=== PATIENT | male | born 1990 | race Caucasian/White ===

== ENCOUNTER 2017-11-12 16:46 | Emergency (ER) | payer BC, OTHER ==
[2017-11-12 17:24] VITALS: BP 136/76
[2017-11-12] MEDS ORDERED: Lidocaine 1% MPF* 2 ML VIAL INJ ONE (18:04)
--- NOTE | 2017-11-12 18:08 | RAD ---
Indication: Traumatic injury to the left knee. 4 views of left knee demonstrates no definite fracture or dislocation. No other bone or joint abnormality is identified. IMPRESSION: No fracture of the left knee is noted.
--- NOTE | 2017-11-12 18:37 | UC ---
Laceration HPI - HPI Summary HPI Summary: 3 cm laceration lateral proximal aspect of left knee-happen when he got hit in the leg with an axe about 2 hours ago - History Of Current Complaint Chief Complaint: UCLaceration Stated Complaint: THIGH LAC Time Seen by Provider: 11/12/17 17:26 Hx Obtained From: Patient Laceration Location: Knee - left Mechanism Of Injury: Sharp Trauma Onset/Duration: Sudden Onset Severity: Mild - Allergies/Home Medications Allergies/Adverse Reactions: Allergies Allergy/AdvReac Type Severity Reaction Status Date / Time Sulfa Antibiotics Allergy Intermediate Hives Verified 11/12/17 17:24 PMH/Surg Hx/FS Hx/Imm Hx Previously Healthy: Yes - Surgical History Surgical History: Yes Surgery Procedure, Year, and Place: wisdom teeth extraction - Family History Known Family History: Positive: None - Social History Occupation: Employed Full-time Lives: With Family Alcohol Use: Rare Substance Use Type: None Smoking Status (MU): Never Smoked Tobacco - Immunization History Most Recent Influenza Vaccination: 2016 Review of Systems Constitutional: Negative Skin: Other - 3 cm laceration near left knee Eyes: Negative ENT: Negative Respiratory: Negative Cardiovascular: Negative Gastrointestinal: Negative Genitourinary: Negative Motor: Negative Neurovascular: Negative Musculoskeletal: Negative Neurological: Negative Psychological: Negative Is Patient Immunocompromised?: No All Other Systems Reviewed And Are Negative: Yes Physical Exam Triage Information Reviewed: Yes Appearance: Well-Appearing, No Pain Distress, Well-Nourished Vital Signs: Initial Vital Signs Temp 99.1 F 11/12/17 17:19 Pulse 86 11/12/17 17:19 Resp 14 11/12/17 17:19 BP 136/76 11/12/17 17:19 Pulse Ox 98 11/12/17 17:19 Vital Signs Reviewed: Yes Eye Exam: Normal Eyes: Positive: Conjunctiva Clear ENT Exam: Normal ENT: Positive: Normal ENT inspection, Hearing grossly normal. Negative: Nasal congestion, Nasal drainage, TMs normal, Trismus, Muffled voice, Hoarse voice, Dental tenderness Dental Exam: Normal Neck exam: Normal Neck: Positive: Supple, Nontender Respiratory Exam: Normal Respiratory: Positive: Chest non-tender, No respiratory distress, No accessory muscle use Cardiovascular Exam: Normal Cardiovascular: Positive: RRR, Pulses Normal, Brisk Capillary Refill Musculoskeletal Exam: Normal Musculoskeletal: Positive: Strength Intact, ROM Intact, No Edema Neurological Exam: Normal Neurological: Positive: Alert, Muscle Tone Normal Psychological Exam: Normal Psychological: Positive: Normal Response To Family Skin Exam: Normal Laceration Repair - Laceration Repair 1 Description: Linear Laceration Size After Repair: Length (cm) - 3, Width (mm) - 3, Depth (mm) - 3 Modified For Repair: No Type Injection: Local Anesthesia Used: 1.0% Lido - 4cc Cleansing Completed Via Routine Prep: Yes Irrigation With Pressure Irrigation Device: Yes Suture Of: Skin Suture Type: Nylon - 5 number 5.0 sutures Diagnostics - Radiology No standard instances Xray Interpretation: Positive (See Comments) Radiology Interpretation Completed By: Radiologist Re-Evaluation - Re-Evaluation First Eval Change: Improved - well approximated, no bleeding patient tolerated well Laceration Course/Dx - Course/Dx Course Of Treatment: tetanus up to yayo, laceration repair bacitracin, soap and water wash boy wrap 5 days of keflex sutures out in 10-14 days - Differential Dx - Laceration/Wound Provider Diagnoses: 3.0cm Laceration repair left leg Discharge - Discharge Plan Condition: Stable Disposition: HOME Prescriptions: Cephalexin CAP* [Keflex CAP*] 500 mg PO QID #20 cap Patient Education Materials: Care For Your Stitches (ED), Laceration (ED) Referrals: Cooper Calderón MD [Primary Care Provider] - If Needed Additional Instructions: Sutures out in 10-14 days
== END 2017-11-12 18:50 | disposition home or self-care (01) ==
LOC: UCEAST 16:46
DX: S81.012A Laceration without foreign body, left knee, initial encounter (principal); Z88.2 Allergy status to sulfonamides; W45.8XXA Other foreign body or object entering through skin, initial encounter; Y92.9 Unspecified place or not applicable
CPT/HCPCS: 12002; 99212; G0463

== ENCOUNTER 2017-11-28 20:42 | Emergency (ER) | payer BC ==
[2017-11-28 20:52] VITALS: BP 130/88
[2017-11-28] MEDS ORDERED: DOXYcycline CAP(*) 100 MG PO ONE (21:20)
[2017-11-28] MEDS ORDERED: Benzoin Compound STICK TOPICAL ONE (21:20)
--- NOTE | 2017-11-28 21:54 | UC ---
Skin Complaint HPI - HPI Summary HPI Summary: 27 yo gentleman presents here for recheck and suture removal L knee. S/p suture placement 11/12/17, s/p accidently chopping knee while chopping wood with a hatchet. Sutures placed here in [facility]. Tet immun utd. Has not gotten the wound wet. + local swelling, mild redness, no sign drainage. 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 Has been working. No recent or new trauma. - History of Current Complaint Chief Complaint: UCSkin Time Seen by Provider: 11/28/17 20:54 Stated Complaint: STITCHES REMOVED Hx Obtained From: Patient Pain Intensity: 0 - Allergy/Home Medications Allergies/Adverse Reactions: Allergies Allergy/AdvReac Type Severity Reaction Status Date / Time Sulfa Antibiotics Allergy Intermediate Hives Verified 11/28/17 20:52 Review of Systems Constitutional: Negative Skin: Other - see hpi Eyes: Negative ENT: Negative Respiratory: Negative Cardiovascular: Negative Gastrointestinal: Negative Genitourinary: Negative Motor: Other - see hpi Neurovascular: Negative Musculoskeletal: Negative Neurological: Negative Psychological: Negative Is Patient Immunocompromised?: No All Other Systems Reviewed And Are Negative: Yes PMH/Surg Hx/FS Hx/Imm Hx Previously Healthy: Yes - Surgical History Surgical History: Yes Surgery Procedure, Year, and Place: wisdom teeth extraction - Family History Known Family History: Positive: None - Social History Alcohol Use: Rare Substance Use Type: None Smoking Status (MU): Never Smoked Tobacco - Immunization History Most Recent Influenza Vaccination: 2016 Physical Exam Triage Information Reviewed: Yes Appearance: Well-Nourished Vital Signs: Initial Vital Signs Temp 98.0 F 11/28/17 20:49 Pulse 60 11/28/17 20:49 Resp 18 11/28/17 20:49 BP 130/88 11/28/17 20:49 Pulse Ox 98 11/28/17 20:49 Vital Signs Reviewed: Yes Eye Exam: Normal - grossly normal ENT Exam: Normal - grossly normal Neck exam: Normal Neck: Positive: Supple Respiratory Exam: Normal - no tachypnea, no dyspnea Cardiovascular Exam: Normal - normal rate, normal general color Abdominal Exam: Normal - no c/o pain Musculoskeletal Exam: Normal, Other - see below "skin" Neurological Exam: Normal - grossly nonfocal Psychological Exam: Normal Skin Exam: Normal, Other - Left knee sup lat to kneecap with approx 2cm laceration, with single interrupted sutures. mild redness, mild local swelling. Not overly hot to touch, no crepitus, no sign drainage. Sutures removed. Wound base with red granulation tissue noted, periulcer epithelial tissue extending downwards to the base of the ulcer. Course/Dx - Course Course Of Treatment: Wound was deep, some dehiscing as a result of downwards epithelial formation. D/w Mr. Arriola that this wound will take a longer time to heal. Steristrips placed by RN. Doxycycline po x 1 here (while not infected perse, bioburden increased), rx total 10 days. D/w COA / tx plan with Mr. Arriola. Questions as posed answered to the best of my ability. F/u PCP per routine. Recommend Wound clinic for wound follow up, within one week if possible. - Diagnoses Provider Diagnoses: R knee wound dehiscence. Suture removal Discharge - Discharge Plan Condition: Stable Disposition: HOME Patient Education Materials: Wound Dehiscence (ED) Referrals: Cooper Calderón MD [Primary Care Provider] - Additional Instructions: Follow up with Dr. Calderón per routine. Referral to the wound clinic - please schedule an appointment for this week if possible. . Please seek medical attention for worse or new problems in the meantime.
== END 2017-11-28 21:50 | disposition home or self-care (01) ==
LOC: UCEAST 20:42
DX: T81.33XD Disruption of traumatic injury wound repair, subsequent encounter (principal); Z88.2 Allergy status to sulfonamides
CPT/HCPCS: 99213; A9270-GY; G0463

== ENCOUNTER 2019-12-02 13:18 | Emergency (ER) | payer BC ==
--- OUTSIDE RECORDS SUMMARY | 2019-12-02 14:29 | XMS REPORT | Continuity of Care Document ---
:1990 External Reference #:[id number] Author Name Nicholas Shipley NP (transmitted by agent of provider Vicky Meneses) Address [address], [place] [address] Care Team Providers Name Role Phone Soumya Stephens M.D. - Surgery of Care Team Information School Psychology Specialist the Hand Eddie Phillips MD - Surgery Care Team Information School Psychology Specialist [phone] Darion Jackman MD - Gastroenterology Care Team Information School Psychology Specialist Gail Velasco MD - Internal Medicine Care Team Information School Psychology Specialist [phone] Problems Active Problems Provider Date Acquired trigger finger Cooper Calderón M.D. Onset: 09/07/2016 Arthralgia of the upper arm Cooper Calderón M.D. Onset: 10/13/2016 Low back pain Cooper Calderón M.D. Onset: 02/03/2018 Social History Type Date Description Comments Sex Unknown Tobacco Use Start: Unknown Former Cigarette Smoker End: Unknown Smoking Status Reviewed: 11/26/19 Former Cigarette Smoker ETOH Use Occasionally consumes alcohol Tobacco Use Start: Unknown Patient is a former 1ppd X 6 years. End: Unknown smoker Recreational Drug Use Denies Drug Use Exercise Type/Frequency Plays sports 4 times a week Exercise Type/Frequency Cardiovascular 4 times/week Allergies, Adverse Reactions, Alerts Active Allergies Reaction Severity Comments Date Sulfa Antibiotics 08/13/2015 Medications Active Medications SIG Qnty Indications Ordering Provider Date Relpax One tablet at 9tabs R51 Nicholas Shipley NP 11/26/2019 40mg Tablets onset of headache. You may take a second tablet if sx. persist after two hours. Meloxicam 1 tablet by 30tabs M54.5 Nicholas Shipley NP 11/26/2019 7.5mg Tablets mouth once daily as needed Tramadol HCL 1 tab two times a 45tabs M54.5 Nicholas Shipley NP 02/03/2018 50mg day as needed Tablets Ibuprofen 1 tab by mouth 90tabs Cooper Calderón, 01/12/2018 600mg Tablets three times a day M.D. as needed. Medications Administered in Office Medication SIG Qnty Indications Ordering Provider Date Depomedrol 40MG Soumya Stephens M.D. 01/25/2019 Injection Depomedrol 40MG Soumya Stephens M.D. 10/14/2016 Injection Immunizations CPT Code Status Date Vaccine Reaction Lot # [id number] Given 11/28/2017 Hepatitis B Vaccine Adult [id number] Dosage 93215 Given 08/09/2017 Influenza Virus Vaccine, [id number] Quadrivalent, Split, Preservative Free [id number] Given 04/04/2017 Hepatitis B Vaccine Adult pt tolerated injection, [id number] Dosage no immediate reaction - pw 03095 Given 04/04/2017 Hepatitis A Vaccine Adult no immediate reaction, [id number] Dosage pt tolerated inj -pw [id number] Given 03/04/2017 Hepatitis B Vaccine Adult [id number] Dosage 77191 Given 03/04/2017 Tdap - no immediate reaction [id number] Tetanus/Diptheria/Acellular noted-pt tolerated Pertussis well...JH 36739 Given 03/04/2017 Hepatitis A Vaccine Adult no reaction noted [id number] Dosage Vital Signs Date Vital Result Comment 11/26/2019 4:15pm Height 76.5 inches 6'4.50" Weight 235.00 lb Heart Rate 73 /min BP Systolic 147 mmHg BP Diastolic 86 mmHg Body Temperature 98.5 F O2 % BldC Oximetry 95 % BMI (Body Mass Index) 28.2 kg/m2 03/28/2019 10:46am Height 76.5 inches 6'4.50" Weight 235.00 lb Heart Rate 68 /min BP Systolic Sitting 144 mmHg BP Diastolic Sitting 88 mmHg Body Temperature 96.7 F O2 % BldC Oximetry 98 % BMI (Body Mass Index) 28.2 kg/m2 Results Description No Information Available Procedures Description No Information Available Medical Devices Description No Information Available Encounters Description No Information Available Assessments Date Code Description Provider 11/26/2019 G43.009 Migraine without aura, not intractable, without Nicholas Shipley NP status migrainosus 11/26/2019 M54.5 Low back pain Nicholas Shipley NP 11/26/2019 J06.9 Acute upper respiratory infection, unspecified Nicholas Shipley NP Plan of Treatment 11/26/2019 - Nicholas Shipley NPG43.009 Migraine without aura, not intractable, without status migrainosusComments:I have prescribed the Relpax. Take this at onset of migraine. Try taking it with 220mg Naproxen and some caffeine.Try starting a headache journal to help identify triggers.Try starting 400mg Magnesium sulfate daily.M54.5 Low back painNew Medication:Meloxicam 7.5 mg - 1 tablet by mouth once daily as gyilmrP77.9 Acute upper respiratory infection, unspecifiedComments:Your symptoms are consistent with a viral upper respiratory infection. I recommend treating symptomatically. Drink plenty of fluids and try to rest as much as possible. If your symptoms worsen or do not improve please call the office. Functional Status Description No Information Available Mental Status Description No Information Available Referrals Description No Information Available
--- NOTE | 2019-12-02 14:34 | UC ---
Throat Pain/Nasal Ken HPI - HPI Summary HPI Summary: 29 y/o male presents to the urgent care c/o RANKIN, sinus congestion w/ green nasal discharge, b/l ear pressure and moderate PND w/ a dry cough for the past 10 days. He has been taking OTD medication w/o any improvement. Pain is 5/10 and associated w/ low grade fever at home. Pt denies dizziness, SOB, chest pain, abdominal pain, N/V/d. - History of Current Complaint Stated Complaint: SINUS CONGESTION Time Seen by Provider: 12/02/19 14:31 Hx Obtained From: Patient Onset/Duration: Gradual Onset, Lasting Weeks - 10 days, Still Present, Worse Since - 2 days w/ green nasal discharge Severity: Moderate Pain Intensity: 5 - sinus pain and RANKIN Pain Scale Used: 0-10 Numeric Cough: Nonproductive Associated Signs & Symptoms: Positive: Sinus Discomfort, Nasal Discharge - green , Fever, Other - dry cough. Negative: Wheezing, Vomiting, Rash - Epiglottits Risk Factors Epiglottis Risk Factors: Negative - Allergies/Home Medications Allergies/Adverse Reactions: Allergies Allergy/AdvReac Type Severity Reaction Status Date / Time Sulfa (Sulfonamide Allergy Hives Verified 12/02/19 14:35 Antibiotics) Home Medications: Home Medications Meloxicam [Mobic] 7.5 mg PO DAILY PRN 12/02/19 [History Confirmed 12/02/19] PMH/Surg Hx/FS Hx/Imm Hx Previously Healthy: Yes - Pt denies PMHX - Surgical History Surgical History: Yes Surgery Procedure, Year, and Place: wisdom teeth extraction - Family History Known Family History: Positive: None - Pt denies FMHX - Social History Occupation: Employed Full-time Lives: With Family Alcohol Use: Rare Substance Use Type: None Smoking Status (MU): Former Smoker - Immunization History Most Recent Influenza Vaccination: 2017 Review of Systems All Other Systems Reviewed And Are Negative: Yes Constitutional: Positive: Negative Skin: Positive: Negative Eyes: Positive: Negative ENT: Positive: Ear Ache - B/L ear pressure, Nasal Discharge - green, Sinus Congestion, Sinus Pain/Tenderness, Other - moderate PND Respiratory: Positive: Cough - dry cough Cardiovascular: Positive: Negative Gastrointestinal: Positive: Negative Genitourinary: Positive: Negative Motor: Positive: Negative Neurovascular: Positive: Negative Musculoskeletal: Positive: Negative Neurological: Positive: Headache Psychological: Positive: Negative Is Patient Immunocompromised?: No Physical Exam - Summary Physical Exam Summary: Vitals: reviewed General: Well developed, well-nourished male patient with NAD. Head and face: Normocephalic and atraumatic, Positive tenderness over the frontal and maxillary sinuses.. Eyes: PERRLA, EOMI x 2. Normal conjunctiva. No eye discharge. ENT: Ears and TM with normal limits. Nose: edematous and erythematous nasal mucosa with yellowish discharge and erythematous mucosa. Pharynx with erythema, no exudate. green PN Neck: Supple, no JVD, no carotid bruits and no lymphadenopathy. Lungs: clear, no rales, no rhonchi, no wheezes. CVS: RRR, S1 and S2 present no murmurs or gallops appreciated. Abdomen: soft nontender with positive bowel sounds. Extremities: no edema noted. Neuro: WNL. Skin: warm and dry Triage Information Reviewed: Yes Throat Pain/Nasal Course/Dx - Course Course Of Treatment: 29 y/o male presents to the urgent care c/o RANKIN, sinus congestion w/ green nasal discharge, b/l ear pressure and moderate PND w/ a dry cough for the past 10 days. He has been taking OTD medication w/o any improvement. Pain is 5/10 and associated w/ low grade fever at home. Pt denies dizziness, SOB, chest pain, abdominal pain, N/V/d. Hx obtained. Pt w/ acute bacterial sinusitis on examination. Pt states Amoxicillin is not longer working for his sinusitis. Pt with 2 weeks of symptoms getting worse. Pt Rx Augmentin PO and flonase nasal spray. Discharge instructions explained to Pt. Advised to Return to the clinic or PCP if symptoms do not improve.Pt understood and agreed with plan of care. - Differential Dx/Diagnosis Differential Diagnosis/HQI/PQRI: Influenza, Laryngitis, Pharyngitis, Sinusitis, URI Provider Diagnosis: Acute bacterial sinusitis Discharge ED - Sign-Out/Discharge Documenting (check all that apply): Patient Departure - D/C home All imaging exams completed and their final reports reviewed: No Studies - Discharge Plan Condition: Stable Disposition: HOME Prescriptions: Amoxicillin/Clavulanate TAB* [Augmentin TAB 875*] 875 mg PO BID #20 tab Fluticasone NASAL SPRAY 50MCG* [Flonase NASAL SPRAY 50MCG*] 2 spray BOTH NARES DAILY #1 btl Patient Education Materials: Sinusitis (ED) Referrals: [facility] – [place] [facility] [Outside] - 3 Days Additional Instructions: 1- Please increase fluid intake and rest. take full course of antibiotics to avoid resistance. Take yogurts w/ probiotics or Culturelle to protect your GI system 2-Use Flonase as directed to help drain fluid. Also buy saline drops to clear sinuses 3-Please f/u w/ your PCP in 3 days if symptoms do not improve for further management and treatment - Billing Disposition and Condition Condition: STABLE Disposition: Home
[2019-12-02 14:35] VITALS: BP 134/88
== END 2019-12-02 15:00 | disposition home or self-care (01) ==
LOC: UCEAST 13:18
DX: J01.80 Other acute sinusitis (principal); H92.03 Otalgia, bilateral; Z88.2 Allergy status to sulfonamides; Z87.891 Personal history of nicotine dependence
CPT/HCPCS: 99212; G0463